=== PATIENT | female | born 1945 | race Asian ===

== ENCOUNTER 2016-06-21 00:45 | Emergency (ER) | payer OTHER ==
[~2016-06-21] VITALS: Ht 157.5 cm; Wt 102.1 kg
[~2016-06-21 00:45] MED LIST: AMLO2.5T PO; HYZAAR1 TA1 PO; LIPITOR10 MG PO; METF500T PO; OMEP40CA PO; RANI150T78 PO
[2016-06-21 01:25] VITALS: BP 180/84; TEMP 98.6
== END 2016-06-21 01:26 | disposition home or self-care (01) ==
LOC: ED 00:45
DX: L29.8 Other pruritus (principal); T36.8X5A Adverse effect of other systemic antibiotics, initial encounter; Y92.098 Other place in other non-institutional residence as the place of occurrence of the external cause
CPT/HCPCS: 96372; 99283; J1200

== ENCOUNTER 2016-06-23 14:52 | Emergency (ER) | payer OTHER ==
[~2016-06-23] VITALS: Ht 157.5 cm; Wt 102.1 kg
[2016-06-23 15:36] VITALS: TEMP 98.4
[2016-06-23 17:06] LABS: PLATELET COUNT 287 K/uL (152-353)
[2016-06-23 17:14] LABS: SODIUM 135 mmol/L (136-145)
[2016-06-23 20:57] VITALS: BP 174/98
== END 2016-06-23 20:55 | disposition home or self-care (01) ==
LOC: ED 14:52
PROVIDERS: Specialist
DX: E83.42 Hypomagnesemia (principal); R94.5 Abnormal results of liver function studies; R53.1 Weakness; N39.0 Urinary tract infection, site not specified
CPT/HCPCS: 36415; 80053; 81000; 83735; 84100; 84443; 85027; 93005; 96365; 96375; 99284; J1200; J3411; J3475; J3490

== ENCOUNTER 2016-11-07 03:37 | Emergency (ER) | payer OTHER ==
[~2016-11-07] VITALS: Ht 157.5 cm; Wt 90.0 kg
[2016-11-07 04:28] LABS: PLATELET COUNT 235 K/uL (152-353)
[2016-11-07 05:31] LABS: POTASSIUM 3.5 mmol/L (3.6-5.2); SODIUM 138 mmol/L (136-145)
[2016-11-07 06:00] VITALS: BP 178/84; TEMP 98.1
== END 2016-11-07 06:01 | disposition home or self-care (01) ==
LOC: ED 03:37
DX: N39.0 Urinary tract infection, site not specified (principal); R82.71 Bacteriuria; E11.9 Type 2 diabetes mellitus without complications; R80.8 Other proteinuria
CPT/HCPCS: 36415; 80048; 81000; 85027; 99283

== ENCOUNTER 2017-08-05 09:33 | Outpatient (CLI) | payer OTHER ==
[2017-08-05 10:27] LABS: PLATELET COUNT 245 K/uL (152-353)
[2017-08-05 12:12] LABS: POTASSIUM 3.4 mmol/L (3.6-5.2)
== END 2017-08-05 19:25 | disposition home or self-care (01) ==
LOC: LABW 09:33
PROVIDERS: Internal Medicine
DX: I12.9 Hypertensive chronic kidney disease with stage 1 through stage 4 chronic kidney disease, or unspecified chronic kidney disease (principal); N30.00 Acute cystitis without hematuria; E11.9 Type 2 diabetes mellitus without complications; R80.8 Other proteinuria; N18.3 Chronic kidney disease, stage 3 (moderate)
CPT/HCPCS: 36415; 80053; 80074; 81000; 82043; 82306; 82330; 82552; 82570; 82607; 82728; 82746; 83036; 83516; 83540; 83550; 83735; 83970; 84100; 84155; 84165; 84166; 84439; 84443; 84550; 85027; 85651; 86039; 86141; 86160; 86225; 86235; 86255; 86430; 87086; 87088

== ENCOUNTER 2017-08-21 09:03 | Outpatient (CLI) | payer OTHER | END 2017-08-21 19:06 | disposition home or self-care (01) | LOC: CT 09:03 | DX: N30.00 Acute cystitis without hematuria (principal) | CPT/HCPCS: Q9963 ==

== ENCOUNTER 2017-11-10 09:04 | Outpatient (CLI) | payer OTHER ==
[2017-11-10 09:35] LABS: PLATELET COUNT 254 K/uL (152-353)
[2017-11-10 09:46] LABS: POTASSIUM 4.1 mmol/L (3.6-5.2)
== END 2017-11-10 22:26 | disposition home or self-care (01) ==
LOC: LABW 09:04
PROVIDERS: Internal Medicine
DX: N18.3 Chronic kidney disease, stage 3 (moderate) (principal)
CPT/HCPCS: 36415; 80053; 85027

== ENCOUNTER 2018-02-03 07:59 | Outpatient (CLI) | payer OTHER ==
[2018-02-03 08:30] LABS: PLATELET COUNT 268 K/uL (152-353)
[2018-02-03 08:39] LABS: POTASSIUM 4.1 mmol/L (3.6-5.2)
== END 2018-02-03 22:59 | disposition home or self-care (01) ==
LOC: LABW 07:59
PROVIDERS: Internal Medicine
DX: N18.3 Chronic kidney disease, stage 3 (moderate) (principal)
CPT/HCPCS: 36415; 80053; 81000; 82043; 82306; 82570; 83735; 83970; 84100; 84155; 85027

== ENCOUNTER 2018-06-02 08:47 | Outpatient (CLI) | payer OTHER ==
[2018-06-02 09:42] LABS: PLATELET COUNT 231 K/uL (152-353)
== END 2018-06-02 20:38 | disposition home or self-care (01) ==
LOC: LABW 08:47
PROVIDERS: Internal Medicine
DX: E11.9 Type 2 diabetes mellitus without complications (principal); I12.9 Hypertensive chronic kidney disease with stage 1 through stage 4 chronic kidney disease, or unspecified chronic kidney disease; N18.3 Chronic kidney disease, stage 3 (moderate); E53.8 Deficiency of other specified B group vitamins
CPT/HCPCS: 36415; 80053; 81000; 82043; 82306; 82570; 82607; 83735; 83970; 84100; 84155; 84439; 84443; 84550; 85027; 85651; 86038

== ENCOUNTER 2018-08-06 07:58 | Outpatient (CLI) | payer OTHER | END 2018-08-06 19:10 | disposition home or self-care (01) | LOC: CT 07:58 | DX: C64.1 Malignant neoplasm of right kidney, except renal pelvis (principal) | CPT/HCPCS: 36415; 82565; 84520; Q9963 ==

== ENCOUNTER 2018-08-16 10:03 | Emergency (ER) | payer OTHER ==
[~2018-08-16] VITALS: Ht 157.5 cm; Wt 93.4 kg
[2018-08-16 11:00] VITALS: BP 141/62; TEMP 97.9
== END 2018-08-16 11:00 | disposition home or self-care (01) ==
LOC: ED 10:03
DX: M54.32 Sciatica, left side (principal)
CPT/HCPCS: 96372; 99282; J2930

== ENCOUNTER 2018-09-01 07:40 | Outpatient (CLI) | payer OTHER ==
[2018-09-01 07:56] LABS: PLATELET COUNT 267 K/uL (152-353)
== END 2018-09-01 22:30 | disposition home or self-care (01) ==
LOC: LABW 07:40
PROVIDERS: Internal Medicine
DX: N18.3 Chronic kidney disease, stage 3 (moderate) (principal); R82.998 Other abnormal findings in urine
CPT/HCPCS: 36415; 81000; 82330; 82570; 83735; 84100; 84155; 85027; 87086; 87088

== ENCOUNTER 2018-12-29 09:04 | Outpatient (CLI) | payer OTHER ==
[2018-12-29 09:29] LABS: PLATELET COUNT 230 K/uL (152-353)
== END 2018-12-29 21:36 | disposition home or self-care (01) ==
LOC: LABW 09:04
PROVIDERS: Internal Medicine
DX: E11.22 Type 2 diabetes mellitus with diabetic chronic kidney disease (principal); N18.3 Chronic kidney disease, stage 3 (moderate); R82.998 Other abnormal findings in urine
CPT/HCPCS: 36415; 81000; 82306; 82330; 82570; 83036; 83735; 83970; 84100; 84155; 85027; 85651; 87077; 87086; 87088; 87186

== ENCOUNTER 2019-03-02 08:12 | Outpatient (CLI) | payer OTHER ==
[2019-03-02 08:52] LABS: POTASSIUM 3.9 mmol/L (3.6-5.2)
[2019-03-02 09:55] LABS: PLATELET COUNT 254 K/uL (152-353)
== END 2019-03-02 19:23 | disposition home or self-care (01) ==
LOC: LABW 08:12
PROVIDERS: Internal Medicine
DX: E11.22 Type 2 diabetes mellitus with diabetic chronic kidney disease (principal); N18.3 Chronic kidney disease, stage 3 (moderate); R82.998 Other abnormal findings in urine
CPT/HCPCS: 36415; 80053; 81000; 82306; 82330; 82570; 83036; 83735; 83970; 84100; 84155; 85027; 85651; 87077; 87086; 87088; 87186

== ENCOUNTER 2019-05-05 10:09 | Outpatient (CLI) | payer OTHER ==
[2019-05-05 10:47] LABS: PLATELET COUNT 223 K/uL (152-353)
[2019-05-05 11:24] LABS: POTASSIUM 3.8 mmol/L (3.6-5.2)
== END 2019-05-05 22:44 | disposition home or self-care (01) ==
LOC: LABW 10:09
PROVIDERS: Nurse Practitioner
DX: N18.3 Chronic kidney disease, stage 3 (moderate) (principal); R82.998 Other abnormal findings in urine
CPT/HCPCS: 36415; 80053; 81000; 82306; 82570; 84155; 85027; 85651; 87077; 87086; 87088; 87186

== ENCOUNTER 2019-07-06 08:30 | Outpatient (CLI) | payer OTHER ==
[2019-07-06 09:14] LABS: POTASSIUM 3.6 mmol/L (3.6-5.2)
[2019-07-06 10:01] LABS: PLATELET COUNT 244 K/uL (152-353)
== END 2019-07-06 22:21 | disposition home or self-care (01) ==
LOC: LABW 08:30
PROVIDERS: Internal Medicine
DX: N18.3 Chronic kidney disease, stage 3 (moderate) (principal); R82.998 Other abnormal findings in urine
CPT/HCPCS: 36415; 80053; 81000; 82306; 82570; 84155; 85027; 85651; 87077; 87086; 87088; 87186

== ENCOUNTER 2020-08-29 08:35 | Outpatient (CLI) | payer OTHER ==
[2020-08-29 09:01] LABS: PLATELET COUNT 208 K/uL (152-353)
[2020-08-29 09:17] LABS: POTASSIUM 4.1 mmol/L (3.6-5.2)
== END 2020-08-29 22:10 | disposition home or self-care (01) ==
LOC: LABW 08:35
PROVIDERS: ATTEND Internal Medicine
DX: N18.31 Chronic kidney disease, stage 3a (principal); E11.22 Type 2 diabetes mellitus with diabetic chronic kidney disease
CPT/HCPCS: 36415; 80053; 81000; 82306; 82330; 82570; 83036; 83735; 83970; 84100; 84155; 84439; 84443; 85027

== ENCOUNTER 2020-09-26 20:03 | Emergency (ER) | payer OTHER ==
[~2020-09-26] VITALS: Ht 157.5 cm; Wt 97.5 kg
[2020-09-26 20:54] VITALS: BP 112/75; TEMP 98.2
== END 2020-09-26 20:54 | disposition home or self-care (01) ==
LOC: ED 20:03
DX: M79.18 Myalgia, other site (principal)
CPT/HCPCS: 96372; 99283; J1885

== ENCOUNTER 2020-12-05 08:27 | Outpatient (CLI) | payer OTHER ==
[2020-12-05 09:04] LABS: PLATELET COUNT 249 K/uL (152-353)
[2020-12-05 09:23] LABS: POTASSIUM 3.8 mmol/L (3.6-5.2)
== END 2020-12-05 20:03 | disposition home or self-care (01) ==
LOC: LABW 08:27
PROVIDERS: ATTEND Nurse Practitioner
DX: E11.22 Type 2 diabetes mellitus with diabetic chronic kidney disease (principal); N18.31 Chronic kidney disease, stage 3a
CPT/HCPCS: 36415; 80053; 81000; 82306; 82330; 82570; 83036; 83735; 83970; 84100; 84155; 84439; 84443; 85027

== ENCOUNTER 2021-03-13 08:38 | Outpatient (CLI) | payer OTHER ==
[2021-03-13 09:13] LABS: POTASSIUM 3.6 mmol/L (3.6-5.2)
[2021-03-13 09:23] LABS: PLATELET COUNT 237 K/uL (152-353)
== END 2021-03-13 18:55 | disposition home or self-care (01) ==
LOC: LABW 08:38
PROVIDERS: ATTEND Internal Medicine
DX: N18.31 Chronic kidney disease, stage 3a (principal); R82.998 Other abnormal findings in urine
CPT/HCPCS: 36415; 80053; 81000; 82043; 82570; 83735; 84100; 84155; 85027; 87077; 87086; 87088; 87186

== ENCOUNTER 2021-04-05 08:52 | Emergency (ER) | payer OTHER ==
[~2021-04-05] VITALS: Ht 157.5 cm; Wt 97.5 kg
[2021-04-05 09:58] LABS: PLATELET COUNT 230 K/uL (152-353)
[2021-04-05 10:50] VITALS: BP 158/62; TEMP 97.6
== END 2021-04-05 10:50 | disposition home or self-care (01) ==
LOC: ED 08:52
PROVIDERS: Emergency Medicine
DX: L03.115 Cellulitis of right lower limb (principal)
CPT/HCPCS: 80053; 85027; 85379; 85610; 87040; 96372; 99283; J2270

== ENCOUNTER 2021-06-28 08:30 | Outpatient (CLI) | payer OTHER ==
[2021-06-28 09:21] LABS: PLATELET COUNT 223 K/uL (152-353)
[2021-06-28 09:34] LABS: POTASSIUM 4.4 mmol/L (3.6-5.2)
== END 2021-06-28 19:56 | disposition home or self-care (01) ==
LOC: LABW 08:30
PROVIDERS: ATTEND Internal Medicine
DX: E11.22 Type 2 diabetes mellitus with diabetic chronic kidney disease (principal); N18.31 Chronic kidney disease, stage 3a; R82.998 Other abnormal findings in urine
CPT/HCPCS: 36415; 80053; 81000; 82306; 82330; 82570; 83036; 83735; 83970; 84100; 84156; 84439; 84443; 85027; 87077; 87086; 87088; 87186

== ENCOUNTER 2021-11-06 08:13 | Outpatient (CLI) | payer OTHER ==
[2021-11-06 08:47] LABS: PLATELET COUNT 256 K/uL (152-353)
[2021-11-06 08:57] LABS: POTASSIUM 3.9 mmol/L (3.6-5.2)
== END 2021-11-06 18:47 | disposition home or self-care (01) ==
LOC: LABW 08:13
PROVIDERS: ATTEND Internal Medicine
DX: E11.22 Type 2 diabetes mellitus with diabetic chronic kidney disease (principal); N18.32 Chronic kidney disease, stage 3b
CPT/HCPCS: 36415; 80053; 81002; 82043; 82306; 82330; 82570; 83036; 83735; 83970; 84100; 84156; 84439; 84443; 85027

== ENCOUNTER 2021-12-20 11:19 | Emergency (ER) | payer OTHER ==
[~2021-12-20] VITALS: Ht 157.5 cm; Wt 88.5 kg
[2021-12-20 11:20] VITALS: TEMP 98.6
[2021-12-20 12:41] LABS: PLATELET COUNT 248 K/uL (152-353)
[2021-12-20 13:01] VITALS: BP 179/82
[2021-12-20 13:10] LABS: PARTIAL THROMBOPLASTIN TIME 25.9 SECONDS (24.5-33.6)
== END 2021-12-20 13:47 | disposition short-term general hospital (02) ==
LOC: ED 11:19
PROVIDERS: Emergency Medicine
DX: I63.9 Cerebral infarction, unspecified (principal)
CPT/HCPCS: 36415; 80053; 82550; 84484; 85027; 85610; 85730; 93005; 96374; 99285; J1644

== ENCOUNTER 2022-02-12 13:19 | Outpatient (CLI) | payer OTHER | END 2022-02-12 20:14 | disposition home or self-care (01) | LOC: MRI 13:19 | PROVIDERS: ATTEND Psychiatry & Neurology Neurology | DX: I63.9 Cerebral infarction, unspecified (principal) ==

== ENCOUNTER 2022-03-07 08:59 | Outpatient (CLI) | payer OTHER ==
[2022-03-07 09:27] LABS: PLATELET COUNT 238 K/uL (152-353)
[2022-03-07 09:55] LABS: POTASSIUM 3.6 mmol/L (3.6-5.2)
== END 2022-03-07 19:08 | disposition home or self-care (01) ==
LOC: LABW 08:59
PROVIDERS: ATTEND Internal Medicine
DX: E11.22 Type 2 diabetes mellitus with diabetic chronic kidney disease (principal); N18.32 Chronic kidney disease, stage 3b
CPT/HCPCS: 36415; 80053; 81002; 82043; 82306; 82330; 82570; 83036; 83735; 83970; 84100; 84156; 84439; 84443; 85027

== ENCOUNTER 2022-08-28 08:18 | Outpatient (CLI) | payer OTHER ==
[2022-08-28 08:57] LABS: PLATELET COUNT 225 K/uL (152-353)
[2022-08-28 09:21] LABS: POTASSIUM 3.6 mmol/L (3.6-5.2)
== END 2022-08-28 22:13 | disposition home or self-care (01) ==
LOC: LABW 08:18
PROVIDERS: ATTEND Internal Medicine
DX: E11.22 Type 2 diabetes mellitus with diabetic chronic kidney disease (principal); N18.32 Chronic kidney disease, stage 3b
CPT/HCPCS: 36415; 80053; 81002; 82043; 82306; 82330; 82570; 83036; 83735; 83970; 84100; 84156; 84439; 84443; 85027